=== PATIENT | female | born 2000 | race Caucasian/White ===

== ENCOUNTER → 2025-02-27 09:15 | Outpatient (BNV) | payer OTHER, SELFPAY | PROVIDERS: Visit Provider Psychiatry & Neurology Psychiatry | DX: F33.1 Major depressive disorder, recurrent, moderate (principal); F41.1 Generalized anxiety disorder | CPT/HCPCS: 90792; 99213 ==

== ENCOUNTER 2025-03-12 08:04 | Outpatient (REF) | payer OTHER, SELFPAY ==
--- NOTE | 2025-03-12 08:11 | ECG_ITS ---
Test Reason : F39 F41.1 Blood Pressure : */* mmHG Vent. Rate : 65 BPM Atrial Rate : 65 BPM P-R Int : 164 ms QRS Dur : 82 ms QT Int : 386 ms P-R-T Axes : 53 51 53 degrees QTcB Int : 401 ms Normal sinus rhythm Normal ECG No previous ECGs available Referred By: Taty Dove Electronically Signed By: HERBERT HOANG
--- OUTSIDE RECORDS SUMMARY | 2025-03-12 08:17 | XMS_ITS | Encounter Summary ---
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 Never 04/09/2023 Q2: How many drinks containi ng alcohol do you have on a typical day when you are drinking? Patient does not drink Q3: How often do you have si x or more drinks on one occasion? Never 04/09/2023 Comments No Sex and Gender Information Value Date Recorded Sex Assigned at Female 04/06/2023 3:37 PM EDT Legal Sex Female 4:01 PM EDT Gender Identity Female 01/04/2021 11:19 AM EST Sexual Orientation Heterosexual (straight) 01/04 11:19 AM EST COVID-19 Exposure Response Date Recorded In the last 10 days, have yo u been in contact with someone who was confirmed or suspected to have Coronavirus/COVID-19? No / Unsure 05/02/2023 3:26 PM EDT documented as of this encounter Plan of Treatment Upcoming Encounters Date Type Department Care Team (Late st Contact Info) Description 04/06/2025 10:30 AM EDT Appointment [facility] [address] [place] [address] 04/14/2025 10:30 AM EDT Office Visit [facility] [place] [address] [place] [address] Mady Anand MD [address] [place] [address] [address] [place] [phone] documented as of this encounter Procedures Procedure Name Priority Date/Time Associated Diagnosis Comments PATHOLOGY REPORT 05/21/2023 11:1 4 AM EDT documented in this encounter Results * PATHOLOGY REPORT (05/21/2023 11:14 AM EDT) Jake Diop DO PATHOLOGY/CYTOLOGY ORDERABLES Fi nal Result documented in this encounter Visit Diagnoses Not on filedocumented in this encounter Care Teams Mellowing Machine Operator Relationship Specialty Start Date End Date Zack Wetzel MD PCP - General Pediatric, General 12/09/20 documented as of this encounter
--- OUTSIDE RECORDS SUMMARY | 2025-03-12 08:17 | XMS_ITS ---
Author Organization [facility] Address [address] [place] [id number] Care Team Providers Care Rn Radiation Oncology Name Role Phone DEBBIEALEXISSANTA AYAN Primary Care Provider Ricky Naylor APRN Unavailable [phone] Allergies Allergen (clinical drug ingredient) Drug/Non Drug Allergy documented on EMR Reaction Allergy Type Onset Date Status Adhesive Unknown Allergy Active REASON FOR VISIT pt is here for sharp stomach pains since sunday Medications Medication SIG (Take, Route, Fr equency, Duration) Notes Start Date End Date Status Omeprazole 40 MG 1 capsule 30 minutes before morning meal Orally Once a day for 30 days 01/29/2024 Active CONTROL Not-Ta josue Omeprazole 40 MG 1 capsule Orally Onc e a day for 30 day(s) 12/25/2023 Not-Taking Social History Tobacco Use: Social History Observation Description Date Details (start date - stop date) Unknown Tobacco Use/Smoking Question Answer Notes Are you a Uses tobacco in other forms Tobacco use other than smoking: Question Answer Notes Are you an other tobacco user? Yes Section Notes: Pt vapes Vital Signs Temperature 98 degrees Fahrenheit 01/29/2024 Heart Rate 86 /min 01/29/2024 Blood pressure systolic 114 mm Hg 01/29/20 Blood pressure diastolic 76 mm Hg 024 Weight 115.2 lbs 01/29/2024 BMI 18.04 kg/m2 01/29/2024 Height 67 in 01/29/2024 Oximetry 98 % 01/29/2024 Encounters Encounter Location Date Provider Diagnosis [facility] [address] [place], [place] [id number] 01/29/2024 Ricky Riveraz Acute gastritis without bleeding K29.00 Assessments Encounter Date Diagnosis (ICD Code) Assessment Notes Treatment Notes Treatment Clinical Notes Section Notes 01/29/2024 Acute gastritis without bleeding (ICD-10 - K29.00) Plan Of Treatment Medication Medication Name Sig Start Date Stop Date Notes Omeprazole 40 MG 1 capsule 30 minutes before morning meal Orally Once a day for 30 days 01/29/2024 Progress Notes * Jo LARADOB: 1 (23 yo F)Acc No.[id number]:01/29/2024 Progress Notes Patient:?Jo LARA Appointment Provider:?Ricky Naylor :2000???Age:23 Y???Sex:Female D ate:01/29/2024 Address:[address] [place], [place] [id number] Pcp:AYAN DAMON Subjective: * Chief Complaints: * ???1. Pt is here for sharp s tomach pains since sunday. * HPI: ???Constitutional:? Patient reports abdominal pain since Sunday. Describes pain as being around center of stomach. Has been having daily bowel movements and feels emptied out each time. Denies heartburn symptoms but does get bloated. * ROS:?General/Constitutional:?Denies?Change in appetite.?Denies?Chills.?Denies?Fatigue.?Denies?Fever.?Denies?Headache.?Denies?L ightheadedness.?Denies?Sleep disturbance.?Denies?Weight gain.?Denies?Weight loss.?Respiratory:?Denies?Asthma,?denies.?Denies?Breathing pattern.?Denies?Breathing problems,?denies.?Denies?Chest pain.?Denies?Cough.?Denies?Hemoptysis.?Denies?Pain with inspiration.?Denies?Pneumonia,?denies.?Denies?Shortness of breath,?denies.?Denies?Shortness of breath at rest.?Denies?Shortness of breath with exertion.?Denies?Sputum production.?Denies?Tuberculosis,?denies.?Denies?Wheezing.?Cardiovascular:?Denies?Chest pain.?Denies?Chest pain at rest.?Denies?Chest pain with exertion.?Denies?Claudication.?Denies?Cyanosis.?Denies?Difficulty laying flat.?Denies?Dizziness.?Denies?Dyspnea on exertion.?Denies?Fluid accumulation in the legs.?Denies?Heart murmur,?denies.?Denies?Heart problems,?denies.?Denies?High blood pressure,?denies.?Denies?Irregular heartbeat,?denies.?Denies?Orthopnea.?Denies?Palpitations,?denies.?Denies?Rheumat ic fever,?denies.?Denies?Shortness of breath.?Denies?Weakness.?Denies?Weight gain.?Gastrointestinal:?Admits?Abdominal pain.?Denies?Blood in stool.?Denies?Change in bowel habits.?Denies?Colitis,?denies.?Denies?Constipation.?Denies?Decreased appetite.?Denies?Diarrhea.?Denies?Difficulty swallowing.?Denies?Exposure to hepatitis.?Denies?Heartburn.?Denies?Hematemesis.?Denies?Hepatitis,?denies.?Denie s?Nausea.?Denies?Rectal bleeding.?Denies?Stomach problems,?denies.?Denies?Vomiting.?Denies?Weight loss.? * Medical History:?Fibroadenom a breast. * Surgical History:?mass remov ed from left breast 2022. * Family History:?Father: tim luna.?Mother: alive.?Siblings: alive.?2 sister(s) . .? uncle has diabetes mom had cancer sister-celiac disease. * Social History:?Tobacco Use:?Tobacco Use/Smoking?Are you a?Uses tobacco in other forms.?Tobacco use other than smoking?Are you an other tobacco user??Yes.?Pt vapes. * Medications:?Not-Taking KIMBERLY H CONTROL , Not-Taking Omeprazole 40 MG Capsule Delayed Release 1 capsule Orally Once a day , Medication List reviewed and reconciled with the patient * Allergies:?Adhesive. Objective: * Vitals:?Temp:98F, HR:86/min, BP:114/76mm Hg, Wt:115.2lbs, BMI:18.04Index, Ht: 67 in, Oxygen sat %:98%, Ht-cm: 170.18 cm, Wt-k.25 kg. * Examination: ???General Examination: ?GENERAL APPEARANCE:?alert, pleasant, well nourished, well developed, in no acute distress.?HEART:?no jugular venous distention, no murmurs, rubs, gallops, no S3, S4, regular rate and rhythm, S1, S2 normal.?LUNGS:?clear to auscultation bilaterally, good air movement, no wheezes, rales, rhonchi.?ABDOMEN:?bowel sounds present, no masses palpable, no rebound tenderness, generalized discomfort with palpation.? Assessment: * Assessment: 1.?Acute gastritis without b leeding - K29.00 (Primary)? Plan: * Treatment: * Images: Billing Information: * Visit Code:? 43139 Office Visit, Est Pt., Level 3. * Procedure Codes:? * Sign off status: Completed true * Appointment Provider:?Ricky Wan ate:?01/29/2024 Generated for Martinez kang/Rebecca/eTransmitting on:?03/12/2025 08:17 AM EDT History and Physical Notes * HPI (History of Present Illness) Category Sub-Category Detail Notes Category Not es Constitutional Patient repor ts abdominal pain since Sunday. Describes pain as being around center of stomach. Has been having daily bowel movements and feels emptied out each time. Denies heartburn symptoms but does get bloated Examination Category Sub-Category Detail Notes Category Not es General Examination GENERAL APPEARANCE: alert, p leasant, well nourished, well developed, in no acute distress HEART: no jugular venous di stention, no murmurs, rubs, gallops, no S3, S4, regular rate and rhythm, S1, S2 normal LUNGS: clear to auscultatio n bilaterally, good air movement, no wheezes, rales, rhonchi ABDOMEN: bowel sounds present , no masses palpable, no rebound tenderness, generalized discomfort with palpation
--- OUTSIDE RECORDS SUMMARY | 2025-03-12 08:17 | XMS_ITS | Clinical Summary ---
Author Organization [facility] Address [address] [place] [address] Care Team Providers Care Director Of Diagnostic Imaging Name Role Phone Unavailable Primary Care Provider Unavailabl e Source Comments Please note that some or all of the patient's information could have additional privacy protections. State laws allow health care providers to render certain types of treatment to minors without parental consent. Please do not assume that this information can be shared solely by obtaining just the consent of the patient's parent/guardian. Please determine if all or part of the patient's care was rendered without parent/guardian involvement. And, if so, obtain the minor's consent prior to disclosure.[facility] Allergies No known active allergies Medications No known medications Active Problems Problem Noted Date Diagnosed Date Simple ovarian cyst 11/01/2016 Immunizations Immunization Administration Dates Next Due Pfizer Sars-cov-2 (Purple Cap) Vaccination 03/12,02/18/2021 Family History Medical History Relation Name Comments Anesthesia problems Neg Hx Bleeding disorder Neg Hx Social History Tobacco Use Types Packs/Day Years Used Date Smoking Tobacco: Never Smokeless Tobacco: Never Tobacco Cessation:Counseling Given: Not Answered Alcohol Use Standard Drinks/Week Comments Not Asked 0 (1 standard drink = 0.6 oz pur e alcohol) Comments Unknown Sex and Gender Information Value Date Recorded Sex Assigned at Not on file Legal Sex Female 7:51 PM EDT Gender Identity Not on file Sexual Orientation Not on file Last Filed Vital Signs Vital Sign Reading Time Taken Comments Blood Pressure 130/94 11/28/2023 2:57 PM EST anx ious. Pulse 90 11/28/2023 2:57 PM EST Temperature 36.8 ??C (98.2 ??F) 11/28/2023 2:57 PM ES T Respiratory Rate 18 11/28/2023 2:57 PM EST Oxygen Saturation 100% 11/28/2023 2:57 PM EST Inhaled Oxygen Concentration - - Weight 53 kg (116 lb 13.5 oz) 11/28/2023 2:57 PM EST Height 167.6 cm (5' 6 ) 11/28/2023 2:57 PM EST Body Mass Index 18.86 11/28/2023 2:57 PM EST Plan of Treatment Health Maintenance Due Date Last Done Comments DTaP/TDAP/TD VACCINES (1 - Tdap) 2008 ADOLESCENT HIV SCREENING 2014 COVID-19 Vaccine (3 - season) 2024 03/12/2021, 02/18/2021 INFLUENZA (#1) 2024 NIRSEVIMAB VACCINES UNDER 8 MONTHS Aged Out No longer eligible b ased on patient's age to complete this topic Insurance [facility]
--- OUTSIDE RECORDS SUMMARY | 2025-03-12 08:17 | XMS_ITS | Clinical Summary ---
Author Organization [facility] Address [address] [place] [address] Care Team Providers Care National Stormwater Leader Name Role Phone Zack Wetzel MD Primary Care Provider [phone] Allergies Active Allergy Reactions Criticality Noted Date Comments Adhesives/Tape Rash/Dermatitis Low 03/21/2023 Medications norethindrone-ethi nyl estradiol (11/24) 1-20 MG-MCG per tablet every 24 hours. Acti ve spironolactone (ALDACTONE) 50 MG tablet spironolactone 50 mg tablet TAKE 1 TAB EACH MORNING FOR 2 WEEKS, THEN 2 TABLETS DAILY IN THE MORNING 10/20/20 22 Active tretinoin (RETIN-A) 0.025 % cream tretinoin 0.025 % topical cream APPLY EVERY OTHER NIGHT X 2-3 WEEKS, THEN NIGHTLY IF TOLERATED Active acetaminophen (TYLENOL) 325 MG tabletIndications: Mass of upper outer quadrant of left breast Take 2 tablets (650 mg total) by mouth 4 times daily (every 6 hours) as needed for mild pain. 80 tablet 04/16/20 23 Active ibuprofen (MOTRIN) 600 MG tabletIndications: Mass of upper outer quadrant of left breast Take 1 tablet (600 mg total) by mouth 4 times daily (every 6 hours) as needed for mild pain. 40 tablet 04/16/20 23 Active traMADol (ULTRAM) 50 MG tabletIndications: Mass of upper outer quadrant of left breast Take 1 tablet (50 mg total) by mouth 3 times daily (every 8 hours) as needed for severe pain. 7 tablet 04/16/20 23 Active ondansetron (ZOFRAN-ODT) 4 MG disintegrating tabletIndications: Nausea in adult Take 1 tablet (4 mg total) by mouth 3 times daily (every 8 hours) as needed for nausea or vomiting. Place tablet on tongue to dissolve. 20 tablet 08/14/20 24 Active levonorgestrel (Mirena, 52 MG,) 20 mcg/24hr IUD 1 Intra Uterine Device by Intrauterine route. 09/19/20 24 Active Active Problems Problem Noted Date Diagnosed Date Mass of upper outer quadrant of left breast 03/05 Abnormal finding on breast imaging 03/21/2023 Family History Medical History Relation Name Comments Diabetes Maternal Uncle Hernandez Brasher i? m not sure when Ovarian cancer Mother Steffi Reyna Celiac disease Sister 1 haritha gonzalez a little o alvarado a year ago Relation Name Status Comments Father Alive Maternal Grandmother Yakelin Corona Maternal Uncle Hernandez Brasher Mother Steffi Reyna Alive Sister 1 haritha gonzalez Alive Sister 2 Alive Social History Tobacco Use Types Packs/Day Years Used Date Smoking Tobacco: Never Smokeless Tobacco: Current Tobacco Cessation:Ready to Q uit: Not Asked; Counseling Given: Not Answered Comments:i vape Alcohol Use Standard Drinks/Week Comments [...] Orientation Heterosexual (straight) 01/04 11:19 AM EST Last Filed Vital Signs Vital Sign Reading Time Taken Comments Blood Pressure 100/62 10/14/2024 10:09 AM EST Pulse 89 08/14/2024 4:07 PM EDT Temperature 36.6 ??C (97.9 ??F) 08/14/2024 4:07 PM ED T Respiratory Rate 18 04/16/2023 3:15 PM EDT Oxygen Saturation 99% 08/14/2024 4:07 PM EDT Inhaled Oxygen Concentration - - Weight 52.6 kg (116 lb) 10/14/2024 10:09 AM EST Height 167.6 cm (5' 6 ) 10/14/2024 10:09 AM EST Body Mass Index 18.72 10/14/2024 10:09 AM EST Plan of Treatment Upcoming Encounters Date Type Department Care Team (Late st Contact Info) Description 04/06/2025 10:30 AM EDT Appointment [facility] [address] [place] [phone] 04/14/2025 10:30 AM EDT Office Visit [facility] [address] [place] [address] Mady Anand MD [address] [facility] [address] [place] [address] Health Maintenance Due Date Last Done Comments HPV Vaccines (1 - 3-dose series) 2016 DTaP/Tdap/Td Vaccines (1 - Tdap) 2020 Hepatitis B Vaccines (1 of 3 - 19+ 3-dose series) 2020 COVID-19 Vaccine ( - season) 2024 11/03/2021, 03/16/2021, 03/12/2021, Additional history exists Influenza Vaccine 06/05/2025 11/03/2021, , 10/16/2018, Additional history exists Pap Smear (Ages 21-65) 07/28/2025 07/28/2022 HIV Screening Completed 05/04/2023 Hepatitis C Virus Screening Completed 05/04/2023 Pneumococcal Vaccine: Pediatric (0-5 Years) and At-Risk Patients (6 to 49 Years) Aged Out No longer eligible based on patient's age to complete this topic Procedures Procedure Name Priority Date/Time Associated Diagnosis Comments HIV 1/2 AG/AB CMIA REFLEX TO CONFIRMATION Routine 05/04/2023 9:24 AM EDT HEPATITIS C VIRUS (HCV) ANTIBODY Routine 05/04/2023 9:24 AM EDT THINPREP PAP TEST (MEDIA CLERK) WITH HPV REFLEX, GC/CT Routine 07/28/2022 9:24 PM EDT from Last 3 Months or Most Recently Relevant to Health Maintenance Results * HIV 1/2 Ag/Ab CMIA Reflex to Confirmation (05/04/2023 9:24 AM EDT) HIV Ag/Ab, 4th Gen NON-REACT CASSIDY NON-REACT CASSIDY [facility] Comment: HIV-1 antigen and HIV-1/HIV-2 antibodies were not detected. There is no laboratory evidence of HIV infection. PLEASE NOTE: This information has been disclosed to you from records whose confidentiality may be protected by state law. ??If your state requires such protection, then the state law prohibits you from making any further disclosure of the information without the specific written consent of the person to whom it pertains, or as otherwise permitted by law. A general authorization for the release of medical or other information is NOT sufficient for this purpose. ?? For additional information please refer to http://education.[employer].PlaySight/faq/EWL502 (This link is being provided for informational/ educational purposes only.) The performance of this assay has not been clinically validated in patients less than 2 years old. 05/04/2023 9:24 AM EDT 05/04/2023 9:25 AM EDT Narrative [facility] - 05/11/2023 2:45 PM EDT FASTING:YES FASTING: YES us Hugo Kingsley PA-C LAB BLOOD ORDERABLES Final Result [facility] [address] [facility] [address], [place] [address] * HEPATITIS C VIRUS (HCV) ANTIBODY (05/04/2023 9:24 AM EDT) Hepatitis C Antibody NON-REACT CASSIDY NON-REACT CASSIDY [facility] Comment: HCV antibody was non-reactive. There is no laboratory evidence of HCV infection. In most cases, no further action is required. However, if recent HCV exposure is suspected, a test for HCV RNA (test code 74295) is suggested. For additional information please refer to http://education.[employer]/faq/AOL03x2 (This link is being provided for informational/ educational purposes only.) 05/04/2023 9:24 AM EDT 05/04/2023 9:25 AM EDT Narrative [facility] - 05/11/2023 2:45 PM EDT FASTING:YES FASTING: YES Hugo Kingsley PA-C LAB BLOOD ORDERABLES Final Result [facility] [address], [place] [address] * ThinPrep Pap Test (Brick Wheeler) with HPV Reflex, GC/CT (07/28/2022 9:24 PM EDT) Report Report [facility] Comment: Final Gynecological Cytology Report ThinPrep Pap Test with HPV Reflex, GC/Chlamydia SPECIMEN ADEQUACY: SATISFACTORY FOR EVALUATION; ENDOCERVICAL/TRANSFORMATION ZONE COMPONENT PRESENT. INTERPRETATION: NEGATIVE FOR INTRAEPITHELIAL LESION OR MALIGNANCY. Electronically Signed: ??Mary Suarez CT (ASCP) CLINICAL INFORMATION: LMP: NG Clinical History: ??NG Biopsy Date: ??NG Specimen Source: ??Cervix, Endocervix Previous Pap Date: ??NG CPT Codes: 73210 ICD Codes: Z01.419 Other 07/28/2022 9:24 PM EDT 07/28/2022 10:30 PM EDT Narrative [facility] - 08/03/2022 10:02 AM EDT CC: ZACK WETZEL MD, FAX us Noemy Longoria MD LAB AMB PATH/CYTO ORDERABLES F inal Result Performing Organization Address City/State/[facility] Co de Phone Number [facility] [address] [place], [place] from Last 3 Months or Most Recently Relevant to Health Maintenance [facility] H[facility] Advance Directives * Full Code (Latest Code Status on File) Date Activated Date Inactivated Comments 04/16/2023 12:16 PM Care Teams National Stormwater Leader Relationship Specialty Start Date End Date Zack Wetzel MD PCP - General Pediatric, General 12/09/20
--- OUTSIDE RECORDS SUMMARY | 2025-03-12 08:17 | XMS_ITS ---
Author Organization [facility] Address [address], [place] [id number] Care Team Providers Care Cell Lead Name Role Phone TUCKER LINFAREEDBRANDON Primary Care Provider [phone] Allergies Allergen (clinical drug ingredient) Drug/Non Drug Allergy documented on EMR Reaction Allergy Type Onset Date Status Adhesive Unknown Allergy Active Results Component Value Reference Range Notes LIPID PANEL WITH REFLEX TO D IRECT LDL Reviewed date:04/09/2024 10:50:26 AM Interpretation: Performing Lab:[facility], [facility] [id number] Ronald Hammond M.D. Notes/Report: FASTING: YES FASTING:YES 0; FASTING; 0; 0; 0; 0 CHOLESTEROL, TOTAL 147 <200 mg/dL HDL CHOLESTEROL 60 > OR = 50 mg/dL TRIGLYCERIDES 43 <150 mg/dL LDL-CHOLESTEROL 75 Desirable range <100 mg/dL for primary prevention; <70 mg/dL for patients with CHD or diabetic patients with > or = 2 CHD risk factors. LDL-C is now calculated using the Armen-Kel calculation, which is a validated novel method providing better accuracy than the Friedewald equation in the estimation of LDL-C. Armen WHITFIELD et al. MINI. 2013;310(19): 7833-7402 (http://education.Testin.CAILabs/faq/JEC871) Reference range: <100 CHOL/HDLC RATIO 2.5 <5.0 (calc) NON HDL CHOLESTEROL 87 <130 mg/dL (calc) For patients with diabetes plus 1 major ASCVD risk factor, treating to a non-HDL-C goal of <100 mg/dL (LDL-C of <70 mg/dL) is considered a therapeutic option. COMPREHENSIVE METABOLIC PANE L Reviewed date:04/09/2024 10:50:26 AM Interpretation: Performing Lab:[employer] [address] Ronald Hammond M.D. Notes/Report: 0; FASTING; 0; 0; 0; 0 FASTING:YES FASTING: YES GLUCOSE 70 65-99 mg/dL Fasting reference interval UREA NITROGEN (BUN) 12 7-25 mg/dL CREATININE 0.57 0.50-0.96 mg/dL EGFR 132 > OR = 60 mL/min/1.73m2 BUN/CREATININE RATIO SEE NOTE: 6-22 (calc) Not Reported: BUN and Creatinine are within reference range. SODIUM 136 135-146 mmol/L POTASSIUM 5.2 3.5-5.3 mmol/L CHLORIDE 101 98-110 mmol/L CARBON DIOXIDE 30 20-32 mmol/L CALCIUM 9.7 8.6-10.2 mg/dL PROTEIN, TOTAL 7.3 6.1-8.1 g/dL ALBUMIN 4.5 3.6-5.1 g/dL GLOBULIN 2.8 1.9-3.7 g/dL (calc) ALBUMIN/GLOBULIN RATIO 1.6 1.0-2.5 (calc) BILIRUBIN, TOTAL 0.4 0.2-1.2 mg/dL ALKALINE PHOSPHATASE 47 31-125 U/L AST 12 10-30 U/L ALT 5 6-29 U/L CBC (INCLUDES DIFF/PLT) Reviewed date:04/09/2024 10:50:26 AM Interpretation: Performing Lab:[employer] [address] Ronald Hammond M.D. Notes/Report: 0; FASTING; 0; 0; 0; 0 FASTING:YES FASTING: YES WHITE BLOOD CELL COUNT 4.7 3.8-10.8 Thousand/ uL RED BLOOD CELL COUNT 5.04 3.80-5.10 Million/uL HEMOGLOBIN 14.7 11.7-15.5 g/dL HEMATOCRIT 45.7 35.0-45.0 % MCV 90.7 80.0-100.0 fL MCH 29.2 27.0-33.0 pg MCHC 32.2 32.0-36.0 g/dL RDW 12.2 11.0-15.0 % PLATELET COUNT 257 140-400 Thousand/uL MPV 12.1 7.5-12.5 fL ABSOLUTE NEUTROPHILS 2745 [id number] cells/uL ABSOLUTE LYMPHOCYTES 1506 366-3974 cells/uL ABSOLUTE MONOCYTES 324 200-950 cells/uL ABSOLUTE EOSINOPHILS 52 15-500 cells/uL ABSOLUTE BASOPHILS 61 0-200 cells/uL NEUTROPHILS 58.4 LYMPHOCYTES 32.3 MONOCYTES 6.9 EOSINOPHILS 1.1 BASOPHILS 1.3 URINALYSIS, COMPLETE W/REFLE X TO CULTURE Reviewed date:03/24/2024 08:03:07 AM Interpretation: Performing Lab:[facility] [address] Ronald Hammond M.D. Notes/Report: 0; FASTING; 0; 0; 0; 0 FASTING:YES FASTING: YES COLOR YELLOW YELLOW APPEARANCE CLOUDY CLEAR SPECIFIC GRAVITY 1.016 1.001-1.035 PH 8.5 5.0-8.0 GLUCOSE NEGATIVE NEGATIVE BILIRUBIN NEGATIVE NEGATIVE KETONES NEGATIVE NEGATIVE OCCULT BLOOD NEGATIVE NEGATIVE PROTEIN NEGATIVE NEGATIVE NITRITE NEGATIVE NEGATIVE LEUKOCYTE ESTERASE NEGATIVE NEGATIVE WBC NONE SEEN < OR = 5 /HPF RBC NONE SEEN < OR = 2 /HPF SQUAMOUS EPITHELIAL CELLS 0-5 < OR = 5 /HPF BACTERIA NONE SEEN NONE SEEN /HPF HYALINE CAST NONE SEEN NONE SEEN /LPF NOTE This urine was analyzed for the presence of WBC, RBC, bacteria, casts, and other formed elements. Only those elements seen were reported. HEMOGLOBIN A1c Reviewed date:04/09/2024 10:50:26 AM Interpretation: Performing Lab:[facility] [address] Ronald Hammond M.D. Notes/Report: 0; FASTING; 0; 0; 0; 0 FASTING:YES FASTING: YES HEMOGLOBIN A1c 4.8 <5.7 % of total Hgb For the purpose of screening for the presence of diabetes: <5.7% Consistent with the absence of diabetes 5.7-6.4% Consistent with increased risk for diabetes (prediabetes) > or =6.5% Consistent with diabetes This assay result is consistent with a decreased risk of diabetes. Currently, no consensus exists regarding use of hemoglobin A1c for diagnosis of diabetes in children. According to [place] Diabetes Association (ADA) guidelines, hemoglobin A1c <7.0% represents optimal control in non- diabetic patients. Different metrics may apply to specific patient populations. Standards of Medical Care in Diabetes(ADA). This test was performed on the Pino keily c503 platform. Effective 01/07/24, a change in test platforms from the Meza Inspector Precision to the Pino keily c503 may have shifted HbA1c results compared to historical results. Based on laboratory validation testing conducted at [facility], the Pino platform relative to the Meza platform had an average increase in HbA1c value of < or = 0.3%. This difference is within accepted variability established by the National Glycohemoglobin Standardization Program. Note that not all individuals will have had a shift in their results and direct comparisons between historical and current results for testing conducted on different platforms is not recommended. TSH Reviewed date:04/09/2024 10:50:26 AM Interpretation: Performing Lab:[facility], [facility] [address] Ronald Hammond M.D. Notes/Report: 0; FASTING; 0; 0; 0; 0 FASTING:YES FASTING: YES TSH 0.36 Reference Range > or = 20 Years 0.40-4.50 Ranges First trimester 0.26-2.66 Second trimester 0.55-2.73 Third trimester 0.43-2.91 COPY(IES) SENT TO: Reviewed date:02/25/2024 10:41:58 AM Interpretation: Performing Lab: Notes/Report: 0; FASTING; 0; 0; 0; 0 FASTING:YES FASTING: YES COPY(IES) SENT TO: [facility] COPY TO [address] [id number] REFLEXIVE URINE CULTURE Reviewed date:03/24/2024 08:00:29 AM Interpretation: Performing Lab:[facility], [facility] [address] Ronald Hammond M.D. 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 Yes How often did you have a dri nk containing alcohol in the past year? Monthly or less (1 point) How many drinks did you have on a typical day when you were drinking in the past year? 1 or 2 drinks (0 point) How often did you have 6 or more drinks on one occasion in the past year? Never (0 point) Points 1 Interpretation Negative Sexual History Question Answer Notes Had sex in the past 12 months (vaginal, oral, or anal)? Yes with Men only Use protection? Yes How often? All of the time Prevention strategies discussed: Condoms Have you ever had a Sexually transmitted disease ? No Tobacco use other than smoking: Question Answer Notes Are you an other tobacco user? Yes Section Notes: Pt vapes Vital Signs Temperature 97.8 degrees Fahrenheit 12/25/19 24 Heart Rate 76 /min 12/25/2023 Blood pressure systolic 101 mm Hg 12/25/19 24 Blood pressure diastolic 65 mm Hg 024 Weight 117.2 lbs 12/25/2023 BMI 18.35 kg/m2 12/25/2023 Height 67 in 12/25/2023 Oximetry 98 % 12/25/2023 Encounters Encounter Location Date Provider Diagnosis [facility] [address] [place], [place] [id number] 12/25/2023 THOMAS LIN Encounter for general adult medical examination without abnormal findings Z00.00 ; Encounter for screening for depression Z13.31 and Acute gastritis without bleeding K29.00 Assessments Encounter Date Diagnosis (ICD Code) Assessment Notes Treatment Notes Treatment Clinical Notes Section Notes 12/25/2023 Encounter for general adult medical examination without abnormal findings (ICD-10 - Z00.00) Advised pt to exercise daily and eat a healthy diet. Advised pt to self exam breast once a month after MC. 12/25/2023 Encounter for screening for depression (ICD-10 - Z13.31) Advised pt to exercise daily and eat a healthy diet. Advised pt to self exam breast once a month after MC. 12/25/2023 Acute gastritis without bleeding (ICD-10 - K29.00) Advised pt to exercise daily and eat a healthy diet. Advised pt to self exam breast once a month after MC. 12/25/2023 Other Marijuana Use: Care Instructions material was published, Learning About Cannabis Use Disorder material was published, Learning About Substance Use Disorder material was published, Substance Use Disorder: Care Instructions material was published, Learning About Vaping material was published Pt is discussed regarding the ill effects on health in using Marijuana and Vaping and is counselled on stopping the usage. Advised pt to exercise daily and eat a healthy diet. Advised pt to self exam breast once a month after MC. Plan Of Treatment Medication Medication Name Sig Start Date Stop Date Notes Omeprazole 40 MG 1 capsule Orally Once a day for 30 day(s) 12/25/2023 Treatment Notes Assessment Notes Other Marijuana Use: Care Instructions material was published, Learning About Cannabis Use Disorder material was published, Learning About Substance Use Disorder material was published, Substance Use Disorder: Care Instructions material was published, Learning About Vaping material was published Progress Notes * Jo GRIERDOB: 1 (23 yo F)Acc No.[id number]:12/25/2023 Progress Notes Patient:?Jo GRIER Provider:Leydi Lin :2000???Age:23 Y???Sex:Female D ate:12/25/2023 Address:[address] [place], [place] [id number] Subjective: * Chief Complaints: * ???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 2. Lmp current ly on period. 3. Pap 2022. 4. [id number]. * HPI: ???Depression Screening:?PHQ-2 (2015 Edition)?Little interest or pleasure in doing things??Not at all ?Feeling down, depressed, or hopeless??Not at all ?Total Score?0 ???Constitutional:?Denies : Anorexia.?Denies : Fatigue.?Denies : Fever.?Denies : Joint pains.?Denies : Myalgia.?Denies : Neck pain.?Denies : Night sweats.?Denies : Weight gain.?Denies : Weight loss.?Denies : edema.?Denies : Swollen legs.?Denies : sleep disturbances.?Denies : headache.?Denies : chills.? New Pt.Pt is here for physical without pap. ?Last pap:2022,has OBGYN. ?LMP:currently on periods. ?MC:regular,on control. ?Diet & Exercise:good and not regular ?Eye exam:long time ago.on glasses. ?Complaints:labs ordered. ?c/o nausea and heartburn in recent times and back muscle spasm. ?she went to hospital for the same and was diagnosed as costochondritis. * ROS:?General/Constitutional:?Denies?Change in appetite.?Denies?Chills.?Denies?Fatigue.?Denies?Fever.?Denies?Headache.?Denies?L ightheadedness.?Denies?Sleep disturbance.?Denies?Weight gain.?Denies?Weight loss.?Allergy/Immunology:?AIDS?denies.?Denies?Blistering of skin.?Denies?Congestion.?Denies?Cough.?Denies?HIV Positive,?denies.?Denies?Hives.?Denies?Itching.?Denies?Rash.?Denies?Seasonal allergies,?denies.?Denies?Sneezing.?Denies?Unusual reaction to medication(s), food, animals or insects.?Denies?Watery eyes.?Denies?Wheezing.?You or family member have problems with anesthesia?denies.?Ophthalmologic:?Denies?Blurred vision,?denies.?Denies?Contact lens,?denies.?Denies?Corrective lens,?denies.?Denies?Diminished visual acuity.?Denies?Discharge.?Denies?Dry eye,?denies.?Denies?Eye Pain.?Denies?Eye problems,?denies.?Denies?Flashes of light in the visual field.?Denies?Floaters in the visual field.?Denies?Itching and redness.?Denies?Red eye.?Denies?Vision screen.?ENT:?Denies?Blocked ear.?Denies?Capped teeth, veneers or dentures.?Denies?Decreased hearing.?Denies?Decreased sense of smell.?Denies?Deviated septum,?denies.?Denies?Difficulty swallowing.?Denies?Dry mouth.?Denies?Ear pain.?Denies?Ear problems,?denies.?Denies?Hearing screen.?Denies?History of broken nose,?denies.?Denies?Masses.?Denies?Mouth breathing at night.?Denies?Nose/Throat problems,?denies.?Denies Nosebleed.?Denies?Oral or facial skeletal surgery.?Denies?Pain.?Denies?Ringing in the ears.?Denies?Sinus pain.?Denies?Snoring,?denies.?Denies?Sore throat.?Denies?Swollen glands.?Endocrine:?Denies?Acne.?Denies?Cold intolerance.?Denies?Diabetes.?Denies?Difficulty sleeping.?Denies?Dizziness.?Denies?Excessive sweating.?Denies?Excessive thirst.?Denies?Frequent urination.?Denies?Hair loss.?Denies?Heat intolerance.?Denies?Hot flashes.?Denies?Irregular menses.?Denies?Thyroid problems.?Denies?Weakness.?Denies?Weight loss.?Respiratory:?Denies?Asthma,?denies.?Denies?Breathing pattern.?Denies?Breathing problems,?denies.?Denies?Chest pain.?Denies?Cough.?Denies?Hemoptysis.?Denies?Pain with inspiration.?Denies?Pneumonia,?denies.?Denies?Shortness of breath,?denies.?Denies?Shortness of breath at rest.?Denies?Shortness of breath with exertion.?Denies?Sputum production.?Denies?Tuberculosis,?denies.?Denies?Wheezing.?Breast:?Denies?Bloody nipple discharge.?Denies?Bra strap grooving,?admits.?Denies?Breast biopsies,?denies.?Denies?Breast lump.?Denies?Breast pain.?Denies?Breast swelling.?Denies?Burning nerve pain.?Denies?Chest muscle pain.?Denies?Fever.?Denies?Gland swelling.?Denies?Nipple discharge.?Denies?Rashes.?Denies?Red skin.?Denies?Weight loss.?Have you had a mammogram??No.?Denies?History of breast cancer,?denies.?Denies?Known breast asymmetry,?admits.?Cardiovascular:?Denies?Chest pain.?Denies?Difficulty laying flat.?Denies?Dizziness.?Denies?Dyspnea on exertion.?Denies?Heart problems.?Denies?Palpitations.?Denies?Shortness of breath.?Gastrointestinal:?Denies?Abdominal pain.?Denies?Blood in stool.?Denies?Change in bowel habits.?Denies?Colitis,?denies.?Denies?Constipation.?Denies?Decreased appetite.?Denies?Diarrhea.?Denies?Difficulty swallowing.?Denies?Exposure to hepatitis.?Denies?Heartburn.?Denies?Hematemesis.?Denies?Hepatitis,?denies.?Denie s?Nausea.?Denies?Rectal bleeding.?Denies?Stomach problems,?denies.?Denies?Vomiting.?Denies?Weight loss.?Hematology:?Denies?Anemia,?denies.?Denies?Bleeding problems,?denies.?Denies?Breast lump.?Denies?Dizziness.?Denies?Easy bruising,?denies.?Denies?Fever.?Denies?Groin mass.?Denies?Prolonged bleeding.?Denies?Recent transfusion,?denies.?Denies?Swollen glands.?Denies?Weakness.?Denies?Weight loss.?Denies?Family member with bleeding problems,?denies.?Women Only:?Denies?Breast lump.?Denies?Breast pain.?Denies?Discharge from the breast.?Denies?Heavy bleeding during menses.?Denies?Hot flashes.?Denies?Irregular menses.?Denies?Missed period(s).?Denies?Painful intercourse.?Denies?Painful menses.?Denies?Vaginal bleeding between periods.?Denies?Vaginal discharge/itching.?Genitourinary:?Denies?Abdominal pain/swelling.?Denies?Blood in urine.?Denies?Difficulty urinating.?Denies?Frequent urination.?Denies?Heavy uterine bleeding,?denies.?Denies?Kidney problems,?denies.?Denies?Pain in lower back.?Denies?Painful urination.?Musculoskeletal:?Denies?Arthritis,?denies.?Denies?Back problems,?denies.?Denies?Carpal tunnel.?Denies?History of Gout,?denies.?Denies?Joint stiffness.?Denies?Leg cramps.?Denies?Muscle aches.?Denies?Pain in shoulder(s).?Denies?Painful joints.?Denies?Sciatica.?Denies?Swollen joints.?Denies?Trauma to arm(s).?Denies?Trauma to hip(s).?Denies?Trauma to knee(s).?Denies?Trauma to ankle(s).?Denies?Weakness.?Peripheral Vascular:?Denies?Absent pulses in hands.?Denies?Absent pulses in feet.?Denies?Blanching of skin.?Blood clots in legs?Denies.?Denies?Cold extremities.?Denies?Decreased sensation in extremities.?Denies?Pain/cramping in legs after exertion.?Denies?Painful extremities.?Denies?Ulceration of feet.?Podiatric:?Denies?Achilles pain.?Denies?Achilles swelling.?Denies?Ankle pain.?Denies?Ankle swelling.?Denies?Ball of foot pain.?Denies?Big toe pain.?Denies?Big toe swelling.?Denies?Burning.?Denies?Difficulty walking.?Denies?Fever.?Denies?Foot numbness.?Denies?Foot pain.?Denies?Joint dislocation.?Denies?Redness over the achilles.?Denies?Sole pain.?Denies?Wound oozing.?Skin:?Denies?Acne.?Applies sunscreen daily?admits.?Denies?Blistering of skin.?Denies?Discoloration.?Denies?Dry skin.?Denies?Eczema.?Denies?Excessive sun exposure.?Denies?Hair changes.?Denies?Hives.?Denies?Itching.?Denies?Keloid formation.?Denies?Masses.?Denies?Mole(s).?Denies?Nail changes.?Denies?Nodule(s).?Denies?Photosensitivity.?Denies?Rash.?Denies?Rash on feet.?Denies?Scaly lesions of skin/scalp.?Denies?Skin cancer.?Denies?Skin lesion(s).?Denies?Skin oozing.?Denies?Sun sensitivity.?Treated with radiation?denies.?Neurologic:?Denies?Balance difficulty.?Denies?Coordination.?Denies?Difficulty speaking.?Denies?Dizziness.?Denies?Fainting.?Denies?Gait abnormality.?Denies?Headache.?Denies?Irritability.?Denies Loss of strength.?Denies?Loss of use of extremity.?Denies?Low back pain.?Denies?Memory loss.?Denies?Pain.?Denies?Paralysis.?Denies?Seizures.?Stroke?Denies,?denies.?Den ies?Tics.?Denies?Tingling/Numbness.&# 160;Denies?Transient loss of vision.?Denies?Tremor.?Psychiatric:?Denies?Anxiety.?Denies?Auditory/visual hallucinations.?Denies?Delusions.?Denies?Depressed mood.?Denies?Difficulty sleeping.?Denies?Eating disorder.?Denies?Loss of appetite.?Denies?Mental or Physical abuse.?Denies?Nervous breakdown,?denies.?Denies?Psychiatric condition,?denies.?Denies?Stressors.?Denies?Substance abuse.?Denies?Suicidal thoughts.?Health Education:?Admits?Blood pressure screening.?Admits?Diabetes screening.?Admits?Healthy weight education.?Admits?Lipid screening.?Cancer Self-Management:?Admits?Breast self-exam.?Admits?Skin exam.?Admits?Use of sunscreen.? * Medical History:?Fibroadenom a breast. * Surgical History:?mass remov ed from left breast 2022. * Family History:?Father: tim e.?Mother: alive.?Siblings: alive.?2 sister(s) . .? uncle has diabetes mom had cancer sister-celiac disease. * Social History:?Tobacco Use:?Tobacco Use/Smoking?Are you a?Uses tobacco in other forms ?Tobacco use other than smoking?Are you an other tobacco user??Yes ???Sexual History:?Sexual History?Had sex in the past 12 months (vaginal, oral, or anal)??Yes ?with?Men only ?Use protection??Yes ?How often??All of the time ?Prevention strategies discussed:?Condoms ?Have you ever had a Sexually transmitted disease??No ?Details of Sexual History?Are you sexually active??Yes ?Are you having any sexual problems??No ?Have you had any sexually transmitted diseases (STDs)??No ?How many sexual partners have you had??1 ?Sexual Abuse?History:?none ???Drugs/Alcohol:?Drugs?Have you used drugs other than those for medical reasons in the past 12 months??Yes ?Marijuana??Yes everyday ?Alcohol Screen (Audit-C)?Did you have a drink containing alcohol in the past year??Yes ?How often did you have a drink containing alcohol in the past year??Monthly or less (1 point) ?How many drinks did you have on a typical day when you were drinking in the past year??1 or 2 drinks (0 point) ?How often did you have 6 or more drinks on one occasion in the past year??Never (0 point) ?Points?1 ?Interpretation?Negative ?Caffeine?Intake:?1-2 cups per day ?Do you smoke marijuana?: Admits. ?Do you drink alcohol?: Socially. ???Miscellaneous:?Caffeine: yes, frequency:, 1-2 cups per day. ?Children: no. ?Community involvements: no. ?Domestic violence: no. ?Exercise: no. ?Home smoke detector use: yes. ?Legal problems: no. ?Living with: family. ?Marital status: single. ?Natural support system: no. ?Occupation: weeks/months/years. ?Others at home: none. ?Pets: dogs. ?Sexual abuse: no. ?Sexually active: yes. ?Travel outside of the [place]: no. ?Verbal abuse: no. ???Pt vapes. * Medications:?Taking CO NTROL , Medication List reviewed and reconciled with the patient * Allergies:?Adhesive. Objective: * Vitals:?Temp:97.8F, HR:76/mi n, BP:101/65mm Hg, Wt:117.2lbs, BMI:18.35Index, Ht: 67 in, Oxygen sat %:98%, Ht-cm: 170.18 cm, Wt-k.16 kg. * Examination: ???General Examination: ?GENERAL APPEARANCE:?normal, alert, well hydrated, in no distress, in no acute distress, pleasant, in no acute distress, well developed, well nourished.?HEAD:?normocephalic, atraumatic.?EYES:?extraocular movement full and smooth , pupils equal, round, reactive to light and accommodation.?EARS:?auditory canal clear,?tympanic membrane intact, clear.?NOSE:?nares patent.?ORAL CAVITY:?mucosa moist.?THROAT:?clear, no erythema.?NECK/THYROID:?neck supple, full range of motion, no cervical lymphadenopathy.?LYMPH NODES:?no cervical adenopathy.?SKIN:?no suspicious lesions.?HEART:?no murmurs, regular rate and rhythm, S1, S2 normal.?LUNGS:?clear to auscultation bilaterally.?BREASTS:?no masses palpable bilaterally.?ABDOMEN:?normal, bowel sounds present, no hepatosplenomegaly.?RECTAL:?not examined.?BACK:?full range of motion , normal.?FEMALE GENITOURINARY:?not examined.?MUSCULOSKELETAL:?normal , full range of motion.?EXTREMITIES:?no edema , normal.?PERIPHERAL PULSES:?2+ dorsalis pedis.?NEUROLOGIC:?cognitive exam grossly normal, alert and oriented , nonfocal.?PSYCH:?alert, oriented.? Assessment: * Assessment: 1.?Encounter for general marcos lt medical examination without abnormal findings - Z00.00 (Primary)?2.?Encounter for screening for depression - Z13.31?3.?Acute gastritis without bleeding - K29.00? Advised pt to exercise daily and eat a healthy diet. Advised pt to self exam breast once a month after MC. Plan: * Treatment: 2.?Acute gastritis without b leeding? Start Omeprazole Capsule Delayed Release, 40 MG, 1 capsule, Orally, Once a day, 30 day(s), 30, Refills 3.?? 3.?Others? Notes: Marijuana Use: Care Instructions material was published, Learning About Cannabis Use Disorder material was published, Learning About Substance Use Disorder material was published, Substance Use Disorder: Care Instructions material was published, Learning About Vaping material was published?? Clinical Notes: Pt is discussed regarding the ill effects on health in using Marijuana and Vaping and is counselled on stopping the usage.?? * Procedure Codes:?84943 BRIEF EMOTIONAL/BEHAV ASSMT * Preventive Medicine:? ??YOUR PREVENTIVE WELLNESS PLAN:?BMI, Height, and Weight:?My BMI, height, and weight were taken on:?12/25/2023 ?Blood Pressure:?My blood pressure was last taken on:?12/25/2023 ?Cervical Cancer Screening (Pap Smear):?Date of last Pap smear?2022, (NORMAL) ?Cholesterol Testing:?My Cholesterol was last tested on:?12/25/2023 Ordered ?Diabetes Screening:?Screening for diabetes was last done on:?12/25/2023 Ordered ?Depression Screening:?Screening for depression was last done on:?12/25/2023 ?Alcohol Misuse Screening:?Screening for alcohol misuse was last done on:?12/25/2023 ??Preventive Wellness Plan:?Annual Wellness Visit?Current Status of AWV :?Up to date ?Date of last AWV :?12/25/2023 ?Cervical Cancer Screening?Current status of Cervical Cancer Screening :?Up to date 2022 ??Counseling:?ALCOHOL USE/ABUSE SCREENING:?.?Annual pap smear:?.?Bike helmet:?.?Breast awareness?.?Breast self exam after periods:?.?Calcium supplementation:?.?Cancer screen:?.?Diet/Vitamins discussed including high doses of Vitamins A, C, E and Zinc:?.?Domestic violence:?.?Donor card:?.?Drugs?.?Exercise:?.?Guns in home:?.?Hand outs:?.?Hazardous materials exposure:?.?Health:?.?Injury prevention:?.?Living will/Organ donor:?.?Safety:?.?Seatbelts:?.?Sexual practices:?.?SMOKING:?.?Social:?.?Sunscreen:?.? * Images: Billing Information: * Visit Code:? 32478 Preventive Care New Pt. Age 18-39. * Procedure Codes:? 62217 BRIEF EMOTIONAL/BEHAV ASSMT. * Sign off status: Completed true * Provider:?Thomas Lin Date:? Generated for Martinez kang/Rebecca/eTransmitting on:?03/12/2025 08:16 AM EDT History and Physical Notes * HPI (History of Present Illness) Category Sub-Category Detail Notes Category Not es Constitutional Anorexia New Pt.Pt is here for physical without pap. Last pap:2022,has OBGYN. LMP:currently on periods. MC:regular,on control. Diet & Exercise:good and not regular Eye exam:long time ago.on glasses. Complaints:labs ordered. c/o nausea and heartburn in recent times and back muscle spasm. she went to hospital for the same and was diagnosed as costochondritis. Fatigue Fever Joint pains Myalgia Night sweats Weight gain Weight loss Neck pain edema Swollen legs sleep disturbances headache chills Depression Screening PHQ-2 (2015 Edition) Little interest or pleasure in doing things?: Not at all Feeling down, depressed, or hopeless?: N ot at all Total Score: 0 Examination Category Sub-Category Detail Notes Category Not es General Examination GENERAL APPEARANCE: normal, alert, well hydrated, in no distress, in no acute distress, pleasant, in no acute distress, well developed, well nourished HEAD: normocephalic, atrau matic EYES: extraocular movement full and smooth , pupils equal, round, reactive to light and accommodation EARS: auditory canal clear , tympanic membrane intact, clear NOSE: nares patent THROAT: clear, no erythema NECK/THYROID: neck supple, full ra nge of motion, no cervical lymphadenopathy HEART: no murmurs, regular rate and rhythm, S1, S2 normal LUNGS: clear to auscultatio n bilaterally ABDOMEN: normal, bowel sounds present, no hepatosplenomegaly NEUROLOGIC: cognitive exam gross ly normal, alert and oriented , nonfocal SKIN: no suspicious lesion s EXTREMITIES: no edema , normal PERIPHERAL PULSES: 2+ dorsalis pedis BACK: full range of motion , normal BREASTS: no masses palpable b ilaterally MUSCULOSKELETAL: normal , full range of motion LYMPH NODES: no cervical adenopat hy RECTAL: not examined PSYCH: alert, oriented FEMALE GENITOURINARY: not examined ORAL CAVITY: mucosa moist
--- OUTSIDE RECORDS SUMMARY | 2025-03-12 08:17 | XMS_ITS ---
Author Name [facility] Organization Unknown Results Test Name/Text Value Interpretation Date Range Source tTG IgA Ser-aCnc 20.8U/mL Above high normal [id number] [facility] IgA SerPl-mCnc 319mg/dL Above high normal [id number] 47 - 310 [facility] Laboratory comment Report Normal [id number] [facility] RPR Ser Ql NON-REACTIVE Normal [id number] [facility] History of Medication Use Medication Directions Dispensed Refills Start Date End Date Stat levonorgestrel (Mirena, 52 MG,) 20 mcg/24hr IUD 1 Intra Uterine Device by Intrauterine route. 09/19/2024 active ondansetron (ZOFRAN-ODT) 4 MG disintegrating tablet Take 1 tablet (4 mg total) by mouth 3 times daily (every 8 hours) as needed for nausea or vomiting. Place tablet on tongue to dissolve. 08/14/2024 active acetaminophen (TYLENOL) 325 MG tablet Take 2 tablets (650 mg total) by mouth 4 times daily (every 6 hours) as needed for mild pain. 04/16/2023 04/27/20 23 active Spironolactone 50 MG Oral Tablet Spironolactone 50 MG Oral Tablet Refills: 0 WHIPPER Start : [id number] 11/08/2022 completed spironolactone (ALDACTONE) 50 MG tablet spironolactone 50 mg tablet TAKE 1 TAB EACH MORNING FOR 2 WEEKS, THEN 2 TABLETS DAILY IN THE MORNING 10/20/2022 active clindamycin phos-benzoyl peroxide (DUAC) 1.2-5 % external gel clindamycin 1.2 % (1 % base)-benzoyl peroxide 5 % topical gel APPLY SMALL AMOUNT TO ACNE DAILY IN THE EVENING. 05/24/2022 active Kyleena 17.5 mcg/24 hr (up to 5 years) 19.5 mg intrauterine device Take 1 device by intrauterine route. 11/19/2019 12/02/19 22 completed Lotrisone 1 %-0.05 % topical cream APPLY TO THE AFFECTED AND SURROUNDING AREAS OF SKIN BY TOPICAL ROUTE 2 TIMES PER DAY IN THE MORNING AND EVENING PRN 02/25/2019 11/14/19 20 completed Lotrisone 1 %-0.05 % topical cream APPLY TO THE AFFECTED AND SURROUNDING AREAS OF SKIN BY TOPICAL ROUTE 2 TIMES PER DAY IN THE MORNING AND EVENING PRN 02/25/2019 11/14/19 20 completed nitrofurantoin monohydrate/macrocry stals 100 mg capsule TAKE 1 CAPSULE BY MOUTH TWICE A DAY WITH MEALS 09/19/20 24 completed propranolol 10 mg tablet TAKE 1 TABLET BY MOUTH EVERY MORNING AND TAKE 1 TABLET BY MOUTH EVERY EVENING 09/19/20 24 completed Caplyta 10.5 mg capsule 09/06/20 23 completed phenazopyridine 200 mg tablet TAKE 1 TABLET BY MOUTH THREE TIMES A DAY FOR 2 DAYS 09/06/20 23 completed metronidazole 0.75 % (37.5 mg/5 gram) vaginal gel INSERT 1 APPLICATORFUL VAGINALLY EVERY DAY AT BEDTIME FOR 5 DAYS 08/08/20 23 completed Ciprodex 0.3 %-0.1 % ear drops,suspension USE 3 DROPS IN LEFT EAR THREE TIMES A DAY 07/26/20 22 completed lithium carbonate ER 300 mg tablet,extended release TAKE 1 TABLET BY MOUTH TWICE A DAY 07/26/20 22 completed Vyvanse 30 mg capsule TAKE 1 CAPSULE BY ORAL ROUTE EVERY DAY IN THE MORNING 07/26/20 22 completed estradiol 0.1 mg/24 hr weekly transdermal patch APPLY 1 PATCH EVERY WEEK BY TRANSDERMAL ROUTE FOR 2 WEEKS DIRECTED 11/01/20 21 completed Vyvanse 20 mg capsule TAKE 1 CAPSULE BY ORAL ROUTE EVERY DAY IN THE MORNING FOR F90.2 11/01/20 21 completed quetiapine 50 mg tablet TAKE 1 TABLET BY MOUTH EVERYDAY AT BEDTIME 05/23/20 21 completed quetiapine ER 50 mg tablet,extended release 24 hr TAKE 1 TABLET BY MOUTH EVERY DAY 05/23/20 21 completed lamotrigine ER 200 mg tablet,extended release 24 hr TAKE 1 TABLET BY ORAL ROUTE EVERY DAY SWALLOWING WHOLE. DO NOT CRUSH, CHEW AND/OR DIVIDE. 05/19/20 21 completed desvenlafaxine succinate ER 50 mg tablet,extended release 24 hr 12/01/19 21 completed fluoxetine 40 mg capsule TAKE 1 CAPSULE BY MOUTH EVERY DAY IN THE MORNING 12/01/19 21 completed lamotrigine 25 mg tablet TAKE 1 TABLET BY MOUTH EVERY DAY 12/01/19 21 completed Latuda 40 mg tablet TAKE 1 TABLET BY ORAL ROUTE EVERY DAY WITH FOOD (AT LEAST 350 CALORIES) 12/01/19 21 completed sertraline 25 mg tablet TAKE 3 TABS BY MOUTH FOR ONE WEEK, THEN 2 TABS FOR ONE WEEK THEN 1 TAB FOR ONE WEEK. 12/01/19 21 completed Mirena 21 mcg/24 hr (up to 8 years) 52 mg intrauterine device active None recorded. (No additional sig information) completed Ciprodex 0.3 %-0.1 % ear drops,suspension USE 3 DROPS IN LEFT EAR THREE TIMES A DAY USE 3 DROPS IN LEFT EAR THREE TIMES A DAY completed hydroxyzine pamoate 25 mg capsule hydroxyzine pamoate 25 mg capsule completed 11/24 (28) 1 mg-20 mcg (21)/75 mg (7) tablet Take 1 tablet every day by oral route. Take 1 tablet every day by oral route. completed Kyleena 17.5 mcg/24 hrs (5yrs) 19.5mg intrauterine device Take 1 device by intrauterine route. Take 1 device by intrauterine route. complete d lamotrigine 100 mg tablet 1 TAB TWICE DAILY FOR 4 DAYS,1/2 TAB IN AM AND 1 TAB IN PM FOR 4 DAYS, 1/2 TWICE A DAY FOR 4 DAYS 1 TAB TWICE DAILY FOR 4 DAYS,1/2 TAB IN AM AND 1 TAB IN PM FOR 4 DAYS, 1/2 TWICE A DAY FOR 4 DAYS completed levonorgestrel (Mirena, 52 MG,) 20 mcg/24hr IUD Mirena 21 mcg/24 hours (8 yrs) 52 mg intrauterine device Insert one device into the uterine cavity active lithium carbonate 300 MG IR capsule Take 1 capsule (300 mg total) by mouth. active Medication Administration not documented Medication Administration not documented completed norethindrone-ethiny l estradiol (11/24) 1-20 MG-MCG per tablet every 24 hours. active propranolol 20 mg tablet TAKE 1 TABLET BY MOUTH UP TO TWICE A DAY NEEDED FOR ANXIETY TAKE 1 TABLET BY MOUTH UP TO TWICE A DAY NEEDED FOR ANXIETY completed tretinoin 0.025 % topical cream APPLY EVERY OTHER NIGHT X 2-3 WEEKS, THEN NIGHTLY IF TOLERATED APPLY EVERY OTHER NIGHT X 2-3 WEEKS, THEN NIGHTLY IF TOLERATED completed Problems Problem Status Onset Date Problem Type Date of Resoluti on Source Mass of upper outer quadrant of left breast active EncounterDiagnosisAct [facility] Abnormal finding on breast imaging active EncounterDiagnosisAct [facility] T Anxiety active EncounterDiagnosisAct [facility] Chest discomfort active EncounterDiagnosisAct [facility] Simple ovarian cyst active 2016-11-01 ProblemAct [facility] Immunizations Vaccine Date Source Lot Number Status Hep A, adult 03/13/2022 [facility] [id number] completed Tdap 03/13/2022 [facility] [id number] completed COVID-19, mRNA, LNP-S, PF, 3 0 mcg/0.3 mL dose 11/03/2021 [facility] [id number] completed Influenza, MDCK, quadrivalent, PF 11/03/2021 [facility] 30 [id number] completed COVID-19, mRNA, LNP-S, PF, 1 00 mcg/0.5mL dose or 50 mcg/0.25mL dose 03/16/2021 [facility] compl eted COVID-19, mRNA, LNP-S, PF, 3 0 mcg/0.3 mL dose 03/12/2021 [facility] [id number] completed [employer] COVID-19 Vac-Tr iS 30 MCG/0.3ML Intramuscular Suspension 03/12/2021 [facility] ed COVID-19, mRNA, LNP-S, PF, 3 0 mcg/0.3 mL dose 02/18/2021 [facility] [id number] completed [employer] COVID-19 Vac-Tr iS 30 MCG/0.3ML Intramuscular Suspension 02/18/2021 [facility] ed COVID-19, mRNA, LNP-S, PF, 1 00 mcg/0.5mL dose or 50 mcg/0.25mL dose 02/14/2021 [facility] compl eted Hep A, adult 11/19/2020 [facility] [id number] completed Influenza, split virus, quadrivalent, PF 11/19/2020 [facility] [id number] completed Influenza, split virus, quadrivalent, PF 10/16/2018 [facility] H [id number] completed meningococcal MCV4P 10/16/2018 [facility] [id number] compl eted HPV, quadrivalent 08/28/[facility] [id number] complet ed influenza, unspecified formulation 08/28/2016 [facility] U [id number] completed HPV, quadrivalent 09/13/2015 [facility] [id number] complet ed influenza, unspecified formulation 09/13/2015 [facility] [id number] completed HPV, quadrivalent 09/01/2014 [facility] [id number] complet ed influenza, unspecified formulation 09/01/2014 [facility] U [id number] completed Meningo (Menactra) 03/07/2013 [facility] [id number] comple jessy Tdap (Boostrix) 03/07/2013 [facility] [id number] completed Influenza (Split) 01/06/2009 [facility] complet ed Varicella 11/26/2007 [facility] completed DTaP 10/20/2005 [facility] completed Influenza (Split) 10/20/2005 [facility] complet ed IPV 10/20/2005 [facility] completed Influenza (Split) 09/20/2004 [facility] complet ed Influenza (Split) 08/11/2004 [facility] complet ed MMR 08/11/2003 [facility] completed varicella 11/21/2002 [facility] completed DTaP, unspecified formulation 08/06/2002 [facility] completed Hib, unspecified formulation 08/06/2002 [facility] completed DTaP 08/06/2002 [facility] completed HIB (HibTITER) 08/06/2002 [facility] completed MMR 05/30/2002 [facility] completed pneumococcal conjugate PCV 7 05/30/2002 [facility] completed Pneumo 05/30/2002 [facility] completed Hep B, unspecified formulation 02/12/2002 [facility] completed Hepatitis B 02/12/2002 [facility] completed DTaP, unspecified formulation 2001 [facility] completed Hib, unspecified formulation 2001 [facility] completed IPV 2001 [facility] completed pneumococcal conjugate PCV 7 2001 [facility] completed DTaP 2001 [facility] completed HIB (HibTITER) 2001 [facility] completed Pneumo 2001 [facility] completed DTaP, unspecified formulation 2001 [facility] completed Hib, unspecified formulation 2001 [facility] completed IPV 2001 [facility] completed pneumococcal conjugate PCV 7 2001 [facility] completed DTaP 2001 [facility] completed HIB (HibTITER) 2001 [facility] completed Pneumo 2001 [facility] completed DTaP, unspecified formulation 2001 [facility] completed Hep B, unspecified formulation 2001 [facility] completed Hib, unspecified formulation 2001 [facility] completed IPV 2001 [facility] completed pneumococcal conjugate PCV 7 2001 [facility] completed DTaP 2001 [facility] completed Hepatitis B 2001 [facility] completed HIB (HibTITER) 2001 [facility] completed Pneumo 2001 [facility] completed Hep B, unspecified formulation 2001 [facility] completed Hepatitis B 2001 [facility] completed Encounters Encounter Type Encounter Reason Primary Diagnosis Location Date Ambulatory Persons encountering health services in oth circumstances Persons encountering health services in oth circumstances [facility] 01/02/2025 Ambulatory Persons encountering health services in oth circumstances Persons encountering health services in oth circumstances [facility] 01/02/2025 Ambulatory Unspecified lump in the left breast, upper outer quadrant Unspecified lump in the left breast, upper outer quadrant [facility] 10/14/2024 Ambulatory Unspecified lump in unspecified breast Unspecified lump in unspecified breast [facility] 10/06/2024 Ambulatory Unspecified lump in the left breast, unspecified quadrant Unspecified lump in the left breast, unspecified quadrant [facility] 09/19/2024 Ambulatory Unspecified lump in the left breast, unspecified quadrant Unspecified lump in the left breast, unspecified quadrant [facility] 09/19/2024 Ambulatory Dysuria Dysuria [facility] 08/14/2024 Ambulatory [facility] for obstetrics/gynecology nurse exam (general) (routine) w abnormal findings [facility] for obstetrics/gynecology nurse exam (general) (routine) w abnormal findings [facility] 05/02/2024 Emergency Other chest pain Other chest pain [facility] ([facility] 11/28/2023 [facility] 09/25[facility]2023 [facility] 09/14/2023 [facility] 09/10/2023 Ambulatory Persons encountering health services in oth circumstances [facility] 09/06/2023 Ambulatory Encounter for contraceptive management, unspecified [facility] 08/08/2023 Ambulatory [facility] 06/07/2023 Ambulatory [facility] 05/03/2023 Ambulatory Unspecified lump in the left breast, upper outer quadrant [facility] 05/02/2023 Ambulatory Unspecified lump in the left breast, upper outer quadrant [facility] 04/16/2023 Ambulatory Abnormal weight loss [facility] 04/09/2023 Ambulatory Other abnormal a nd inconclusive findings on diagnostic imaging of breast [facility] 03/21/2023 Ambulatory [facility] 03/14/2023 Ambulatory [facility] 03/14/2023 Ambulatory Unspecified lump in the left breast, unspecified quadrant [place] [facility] 12/29/2022 Ambulatory [facility] 12/22/2022 Ambulatory [facility] 08/24/2022 Ambulatory [facility] 07/28/2022 Ambulatory [facility] 06/06/2022 Ambulatory [facility] 11/01/2021 Care Team Organization Name Specialty Phone Email Start Date End Da te [facility] ([facility]) 11/28/2023 [facility] ([facility]) [facility] 09/10/2023 [facility] 07/27/2023 024 [facility] Rashard Dixon [facility] 07/10/2024 [facility] KEVIN GOMEZ Primary Care 12/29/2022 01/21/[address] [facility] 09/21/2022 06/23/2024 [facility] 08/29/2022 [facility] KEVIN GOMEZ MD Primary Care 07/21/2022 022 [facility] 03/17/2022 11/08/2022 [facility] 06/08/2021 08/24/2022
--- OUTSIDE RECORDS SUMMARY | 2025-03-12 08:18 | XMS_ITS ---
Author Organization [facility] Address [address] [place] [id number] Care Team Providers Care Consumer Loan Officer Name Role Phone AYAN DAMON Primary Care Provider [phone] REASON FOR VISIT Update [facility] [employer] Encounters Encounter Location Date Provider Diagnosis [facility] [address] [place] [phone] 01/29/2024 AYAN DAMON Plan Of Treatment No Information Progress Notes * Jo GRIERDOB: 1 (23 yo F)Acc No.[id number]:01/29/2024 Patient:?Jo GRIER :2000???Age:23 Y???Sex:Female Address:[address] [place] [address] * true * Date:? Generated for Nelli pearl/Rebecca/eTransmitting on:?03/12/2025 08:17 AM EDT
--- OUTSIDE RECORDS SUMMARY | 2025-03-12 08:18 | XMS_ITS | Encounter Summary ---
Author Organization [facility] Address [address] [place] [address] Care Team Providers Care English Professor Name Role Phone Zack Wetzel MD Primary Care Provider [phone] Encounter Details Date Type Department Care Team (Late st Contact Info) Description 08/14/2024 Scanned Document [address] [place] [phone] Provider, Generic Social History Tobacco Use Types Packs/Day Years [...] Orientation Heterosexual (straight) 01/04 11:19 AM EST documented as of this encounter Plan of Treatment Upcoming Encounters Date Type Department Care Team (Late st Contact Info) Description 04/06/2025 10:30 AM EDT Appointment [facility] [address] [place] [address] 04/14/2025 10:30 AM EDT Office Visit [facility] [address] [place] [phone] Mady Anand MD [address] [facility] [address] [place] [address] documented as of this encounter Visit Diagnoses Not on filedocumented in this encounter Care Teams English Professor Relationship Specialty Start Date End Date Zack Wetzel MD PCP - General Pediatric, General 12/09/20 documented as of this encounter
--- OUTSIDE RECORDS SUMMARY | 2025-03-12 08:18 | XMS_ITS | Encounter Summary ---
Author Organization [facility] Address [address] [place] [address] Care Team Providers Care Identification Officer Name Role Phone Zack Wetzel MD Primary Care Provider [phone] Encounter Details Date Type Department Care Team (Late st Contact Info) Description 08/14/2024 Scanned Document [address] [place] [phone] Provider, Generic Social History Tobacco Use [...] Info) Description 04/06/2025 10:30 AM EDT Appointment [facility] [address] [place] [address] 04/14/2025 10:30 AM EDT Office Visit [facility] [address] [place] [phone] Mady Anand MD [address] [facility] [address] [place] [address] documented as of this encounter Visit Diagnoses Not on filedocumented in this encounter Care Teams Identification Officer Relationship Specialty Start Date End Date Zack Wetzel MD PCP - General Pediatric, General 12/09/20 documented as of this encounter
--- OUTSIDE RECORDS SUMMARY | 2025-03-12 08:19 | XMS_ITS | Patient Health Record ---
Author Organization [facility] Address [address] [place], [place] [id number] Care Team Providers Care Office Support Associate Name Role Phone AYAN DAMON Primary Care Provider [phone] Allergies Allergen (clinical drug ingredient) Drug/Non Drug Allergy documented on EMR Reaction Allergy Type Onset Date Status Adhesive Unknown Allergy Active Reason For Referral No Information Medications Medication SIG (Take, Route, Fr equency, [...] tobacco user? Yes Section Notes: Pt vapes Pt vapes Plan Of Treatment No Information Insurance Providers Payer Name Payer Address Payer Phone Subscriber Number Group Number Insured Name Patient Relationship to Insured Coverage Start Date Coverage End Date [facility] [address] [place], [place] [phone] [id number] Jo Lara Self - patient is the insured Medical (General) History Medical History History ICD Code fibroadenoma breast Surgical History Surgery Date(Month/Year) mass removed from left breast 2022
--- OUTSIDE RECORDS SUMMARY | 2025-03-12 08:19 | XMS_ITS | Clinical Summary ---
Author Organization [facility] Address [address] [place] [address] Care Team Providers Care Caster [employer] Name Role Phone Unknown Pcp, Non Php Primary Care Provider Unava ilable Medications Clindamycin-Pablo oyl Per, Refr, (BENZACLIN) gel Apply small amount to acne daily in the evening. 1 6 05/24/2022 Active Tretinoin (RETIN-A) 0.025 % cream 45 0 10/20/2022 Active Spironolactone (ALDACTONE) 50 MG tablet 0 11/08/2022 Active Norethin Juve-Eth Estrad-FE (11/24) 1-20 MG-MCG per tablet TAKE 1 TABLET BY MOUTH EVERY DAY 84 0 03/14/2023 Active Active Problems Problem Noted Date Diagnosed Date Preoperative examination 04/10/2023 Left breast mass 04/10/2023 Adult celiac disease 04/03/2023 Current every day vaping 03/27/2023 Acne 05/20/2022 Weight loss 05/20/2022 Encounter for immunization 03/13/2022 Bipolar disorder, mixed 11/19/2020 Normal eye exam 09/13/2015 Routine child health maintenance 09/13/2015 Resolved Problems Problem Noted Date Diagnosed Date Resolved Date Headache 11/08/2022 12/08/2022 Immunizations Name Administration Dates Next Due Covid-19, mRNA (Pfizer Pre F all 2022) Monovalent, 30 mcg/0.3 ml mehnaz-sucrose (12+) 03/12/2021,02/18/2021 DTaP 10/20/2005, 2,2001,09/02,2001 HPV4 (Gardasil 4) 08/28/2016,09/13/2015,09/01/20 14 Hep A (adult) 03/13/2022,11/19/2020 Hep B (adult) 02/12/2002,2001,2001 Hib (HbOC) 08/06/2002, 2,2001,07/15 IPV 10/20/2005, 2,2001,07/15 Influenza (SEASONAL) - 08/28/2016,09/13/2015, Influenza,injectable,MDCK, P rsrv Fr,Quad 11/03/2021 Influenza,injectable,quad,Prsrv Fr 11/19/2020, Influenza,split(incl.purifie d surface antigen) 01/06/2009,10/20/2005,09/20/2004,08/11 MMR 08/11/2003,05/30/2002 Meningococcal ACWY (Menactra) 10/16/2018, 013 PPV23 (Pneumovax) 05/30/2002, 2,2001,07/15 Tdap 03/13/2022,03/07/2013 Varicella 11/26/2007,11/21/2002 Family History Medical History Relation Name Comments Diabetes Maternal grandfather type 1 diabetes mellitus : Maternal Grandfather, Maternal Uncle, Cousin Diabetes Maternal uncle type 1 diabet es mellitus : Maternal Grandfather, Maternal Uncle, Cousin Diabetes Other type 1 diabetes mellitus : Maternal Grandfather, Maternal Uncle, Cousin Relation Name Status Comments Maternal grandfather Maternal uncle Other Social History Tobacco Use Types Packs/Day Years Used Date Smoking Tobacco: Never Assessed Comments:Smoking Status:Curr ently using tobacco Comments Unknown Sex and Gender Information Value Date Recorded Sex Assigned at Not on file Legal Sex Female 11:22 PM EDT Gender Identity Not on file Sexual Orientation Not on file Last Filed Vital Signs Vital Sign Reading Time Taken Comments Blood Pressure 108/64 04/10/2023 9:44 AM EDT Pulse 80 04/10/2023 9:44 AM EDT Temperature 36.6 ??C (97.9 ??F) 04/10/2023 9:44 AM ED T Respiratory Rate 18 04/10/2023 9:44 AM EDT Oxygen Saturation 97% 11/08/2022 9:33 AM EST RA Inhaled Oxygen Concentration - - Weight 54.3 kg (119 lb 12.8 oz) 04/10/2023 9:44 AM EDT Height 170.2 cm (5' 7 ) 04/10/2023 9:44 AM EDT Body Mass Index 18.76 04/10/2023 9:44 AM EDT Plan of Treatment Health Maintenance Due Date Last Done Comments Pap Smear 2017 Chlamydia 03/27/2024 03/27/2023, 11/05, 10/21/2019 COVID-19 Vaccine ( season) 2024 03/12/2021, 02/18/2021 Influenza (Season Ended) 2025 021, 11/19/2020, 10/16/2018, Additional history exists DTaP/Tdap/Td (8 - Td or Tdap) 03/13/2032 03/13/2022, 03/07/2013, 10/20/2005, Additional history exists Zoster (Shingrix) (1 of 2) 2051 11/26/2007, Hep B Completed 02/12/2002, 07/06, 2001 Pneumococcal Aged Out 05/30/2002, 06/2002, 2001, Additional history exists No longer eligible based on patient's age to complete this topic Hib Completed 08/06/2002, 06/2002, 2001, Additional history exists HPV Vaccine Completed 08/28/2016, 0 07/2015, 09/01/2014 Meningococcal ACWY Completed 10/16/2018, 03/07/2013 Hep A Aged Out 03/13/2022, 11/19/2020 No lo nger eligible based on patient's age to complete this topic Physical Discontinued 03/27/2023, 07/2022, 11/19/2020, Additional history exists Hepatitis C Screening Completed 03/29/2023 Colonoscopy Discontinued 07/23/2023 Procedures Procedure Name Priority Date/Time Associated Diagnosis Comments COLONOSCOPY 07/23/2023 11:12 AM EDT HEPATITIS C ANTIBODY W/ REFLEX TO RNA, QN, RT PCR Routine 03/29/2023 2:28 PM EDT CHLAMYDIA TRACHOMATIS/N. GONORRHOEAE (GC) RNA, TMA (URINE) Routine 03/27/2023 2:30 PM EDT from Last 3 Months or Most Recently Relevant to Health Maintenance Results * COLONOSCOPY (07/23/2023 11:12 AM EDT) Narrative 07/23/2023 11:12 AM EDT Ordered by an unspecified provider. us Unknown Provider PROCEDURES Final Result * HEPATITIS C ANTIBODY W/ REFLEX TO RNA, QN, RT PCR (03/29/2023 2:28 PM EDT) Hepatitis C virus Ab NON-REACT CASSIDY NON-REACT CASSIDY PHCT CONVERSIONS Comment:Antibodies to HCV we re not detected. NOTE: This does not entirely exclude the possibility of exposure to HCV since antibody production may lag infection. If there is a high suspicion of HCV infection HCV RNA testing may be of diagnostic value. 03/29/2023 2:28 PM EDT Narrative PHCT CONVERSIONS - 03/29/2023 11:18 PM EDT [facility] received extra specimens:.br1 APTIMA URINE..brPlease contact the laboratory immediately, if additional testing is needed..brPhone: .brThank you Testing Performed at: [facility], [address], [place] [address], , Ethnographic Materials Conservator: Jahaira Cruz MD CL#[id number] us Zack Wetzel MD LABORATORY Final Result PHCT CONVERSIONS * CHLAMYDIA TRACHOMATIS/N. GONORRHOEAE (GC) RNA, TMA (URINE) (03/27/2023 2:30 PM EDT) CHLAMYDIA TRACHOMATIS RNA, TMA NOT DETECTED NOT DETECTED PHCT CONVERSIONS NEISSERIA GONORRHOEAE RNA, TMA NOT DETECTED NOT DETECTED PHCT CONVERSIONS 03/27/2023 2:30 PM EDT Narrative PHCT CONVERSIONS - 03/28/2023 8:10 AM EDT No Collection Date or Time Noted on requisition, Received Date and Time utilized. Testing Performed at: [facility], [address] [place], [place] [id number], , Ethnographic Materials Conservator: Jahaira Cruz MD CL#[id number] Zack Wetzel MD LABORATORY Final Result PHCT CONVERSIONS from Last 3 Months or Most Recently Relevant to Health Maintenance Insurance PPO Care Teams Caster [employer] Relationship Specialty Start Date End Date Unknown Pcp, Non Php PCP - General 10/15/24
--- OUTSIDE RECORDS SUMMARY | 2025-03-12 08:20 | XMS_ITS | Encounter Summary ---
Author Organization [facility] Address [address] [place] [address] Care Team Providers Care Relief Man Name Role Phone Zack Wetzel MD Primary Care Provider [phone] Charla Birmingham MD Unavailable [phone] Encounter Details Date Type Department Care Team (Late st Contact Info) Description 01/07/2021 Scanned Document [facility] [address] [phone] Provider, External, [address] [place] [address] Social History Tobacco Use Types Packs/Day Years Used Date Smoking Tobacco: Never Assessed Comments Unknown Sex and Gender Information Value Date Recorded Sex Assigned at Female 04/06/2023 3:37 PM EDT Legal Sex Female 4:01 PM EDT Gender Identity Female 01/04/2021 11:19 AM EST Sexual Orientation Heterosexual (straight) 01/04 11:19 AM EST documented as of this encounter Plan of Treatment Upcoming Encounters Date Type Department Care Team (Late st Contact Info) Description 04/06/2025 10:30 AM EDT Appointment [facility] [address] [place] [address] [address] [place] [address] 04/14/2025 10:30 AM EDT Office Visit [facility] [address] [place] [address] Mady Anand MD [address] [facility] [address] [place] [address] documented as of this encounter Visit Diagnoses Not on filedocumented in this encounter Care Teams Relief Man Relationship Specialty Start Date End Date Zack Wetzel MD PCP - General Pediatric, General 12/09/20 Charla Birmingham MD [address] [place] [address] PCP - [employer] Attributed 12/06/22 01/02/23 documented as of this encounter
[2025-03-12 08:27] LABS: MANUAL DIFF FLAG NO
[2025-03-12 08:32] LABS: Basophils Absolute Auto 0.1 X10*3/uL (0.0-0.2); Basophils Percent Auto 1.6 % (0-2); Eosinophils Absolute Auto 0.1 X10*3/uL (0.0-0.4); Eosinophils Percent Auto 1.8 % (0-4); Hematocrit 40.7 % (37.0-47.0); Hemoglobin 13.4 g/dl (12.0-16.0); Imm Gran Abs Auto 0.01 X10*3/uL (0.00-0.03); Imm Gran Pct Auto 0.2 % (0.0-0.4); Lymphocytes Percent Auto 21.8 % (20-40); Mean Corpuscular HGB Conc 32.9 g/dl (31.0-35.0); Mean Corpuscular Hemoglobin 29.4 pg (27.0-33.0); Mean Corpuscular Volume 89.3 fL (80.0-98.0); Mean Platelet Volume 10.9 fL (9.4-12.3); Monocytes Absolute Auto 0.3 X10*3/uL (0.1-1.2); Monocytes Percent Auto 6.4 % (2-11); Neutrophils Percent Auto 68.2 % (45-73); Platelet Count 226 X10*3/uL (160-400); Red Blood Count 4.56 X10*6/uL (4.20-5.50); Red Cell Distribution Width 13.2 % (11.0-16.0); White Blood Count 4.4 X10*3/uL (4.8-10.8)
[2025-03-12 08:53] LABS: Alanine Aminotransferase 12 U/L (0-31); Albumin Level 4.2 g/dL (3.5-5.0); Alkaline Phosphatase 45 U/L (39-117); Anion Gap 10 (12-20); Aspartate Amino Transferase 20 U/L (5-31); Bilirubin Total 0.4 mg/dL (0.0-1.0); Blood Urea Nitrogen 11 mg/dL (9-16); Calcium 9.1 mg/dL (8.4-10.2); Carbon Dioxide 24 mmol/L (22-29); Chloride 109 mmol/L (96-108); Cholesterol 124 mg/dL (<200); Estimated Glomerular Filt Rate > 60; Glucose Fasting 84 mg/dL (60-99); HDL Cholesterol 53 mg/dL (>40); Iron 97 mcg/dL (30-160); LDL Cholesterol Calculated 62 mg/dL (<100); Percent Iron Saturation 39 % (15-50); Sodium 139 mmol/L (135-145); Total Iron Binding Capacity 246 mcg/dL (228-428); Total Protein 6.7 g/dL (6.5-8.0); Triglycerides 45 mg/dL (<150); Unsaturated Iron Binding 149 ug/dL
[2025-03-12 09:01] LABS: Urine Pregnancy NEGATIVE (NEGATIVE)
[2025-03-12 09:02] LABS: UPreg QC Valid YES
[2025-03-12 09:08] LABS: Free T4 (Free Thyroxine) 0.97 ng/dL (0.71-1.85); Thyroid Stimulating Hormone 0.52 uIU/mL (0.32-4.0)
[2025-03-12 09:12] LABS: Erythrocyte Sedimentation Rate 2 MM/HR (0-20)
[2025-03-12 09:21] LABS: Folate 5.7 ng/mL (> or = 4.0); Vitamin B12 422 pg/mL (200-900)
[2025-03-12 09:24] LABS: Estimated Average Glucose 85 mg/dL; Hemoglobin A1C 95.3202 umol/L; Hemoglobin A1c % 4.6 % (<6.0); Total Hemoglobin (HGBA1C) 3556.4161 umol/L
[2025-03-13 16:04] LABS: Homocysteine 8.1 umol/L (<10.4)
[2025-03-17 07:19] LABS: Methylmalonic Acid 86 nmol/L (55-335)
[2025-03-19 06:28] LABS: Vitamin B1 10 nmol/L (8-30)
== END 2025-03-12 08:05 | disposition home or self-care (01) ==
LOC: HO.LAB 08:04
PROVIDERS: PCP Family Medicine; Visit Provider Psychiatry & Neurology Psychiatry
DX: F39 Unspecified mood [affective] disorder (principal); F41.1 Generalized anxiety disorder; Z13.6 Encounter for screening for cardiovascular disorders; Z13.1 Encounter for screening for diabetes mellitus
CPT/HCPCS: 36415; 80053; 80061; 81025; 82306; 82607; 82746; 83036; 83090; 83540; 83735; 83921; 84425; 84439; 84443; 85025; 85652; 93005

== ENCOUNTER → 2025-03-12 08:11 | Outpatient (BNV) | payer OTHER, SELFPAY | PROVIDERS: PCP Family Medicine; Visit Provider Internal Medicine | DX: F39 Unspecified mood [affective] disorder (principal); F41.1 Generalized anxiety disorder | CPT/HCPCS: 93010 ==

== ENCOUNTER 2025-03-16 09:00 | Outpatient (RCR) | payer OTHER, SELFPAY ==
[2025-02-27 11:09] VITALS: BMI 18.9
[2025-02-27 11:10] VITALS: BP 92/65; PULSE 59; TEMP 36.7
--- NOTE | 2025-02-27 12:10 | P.HPPSP_ITS ---
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 As much as it was not a healthy relationship she says she now is also dealing with feeling rejected, which feeds thoughts of worthlessness. ?He was stringing me along . She also reports recently dating another kassi who needed space which further plate into recurrent themes of neglect. ?I do not want to I just want all these problems to go) she reports feeling depressed, numb, empty, worthless sometimes admits she ?does not see the point?. Denies any suicidal intention urge or plan to harm self. She reports carrying previous diagnoses including MDD, cannabis use disorder, ADHD by her provider who has a reported tendency to change her meds frequently which she does find frustrating as she is not sure she is spending enough time on them. She also reports experiencing bouts of anxiety. 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 Has been in outpatient treatment for all the past year at [facility], where she has a therapist for over the past year and only recently was restarted on medication 3 weeks ago. She reports last being treated back in 2022 by this same provider when she had stopped taking medication shortly after graduating from college. I have been on some SSRIs, based on my tolerance they thought I had bipolar 2.? Currently denies any symptoms of hypomania, david or psychosis. Past Psychiatric History: IPLOC: PHP: Denies Therapist: Melissa Foy (at [facility]) Psych provider: Lianna (at [facility]), just recently r estarted medications after a few years of being off PCP: Estrella Lin Previous medication trials: BuSpar, duloxetine, Zoloft, Prozac, possibly Celexa, lamotrigine (rash), possibly Abilify, lithium, Seroquel (self-harming behaviors) Latuda was prescribed but not started due to cost. Peer was also on Caplyta up to 10.5 mg in 2022. Vistaril, Ativan, possibly some stimulant trials, (Vyvanse, possibly Concerta) Current medications: Clonazepam 0.5 t.i.d. (split 0.5/0.25/0.25/0.5) - this was started February 11 Propranolol 10 mg b.i.d. - started February 17 [facility] Medical History (Updated 03/02/25 @ 03:17 by Taty Dove MD) History of concussion Narrative: History of recurrent cysts on ovaries and breast (some as large as 6 cm), denies known history of PCOS is not sure if she has been worked up Status post ovarian cystectomy x1 (L) Status post breast cystectomy x1 (L) Previous colonoscopy to rule out celiac in 2022 Denies seizures Concussion x1 age 18 (sports related) Nulligravid G0 LMP: On IUD does not recall last menses Height: 5 ft 6 in Weight: 117 lb Allergies: Lamictal, adhesive Surgical History (Updated 02/27/25 @ 11:07 by Isabell Casanova RN) History of removal of cyst Social History: Lives with mother, sister, stepdad Undergraduate graduated 2022 Substance History: Alcohol use - social use, able to function, in moderation, seldom to occasional Denies nicotine or marijuana use or any other substance use Diagnostics Vital Signs (24Hr): BMI result Body Mass Index 18.9 Meds/Allergies Meds Home Medications ?Medication ?Instructions ?Recorded ?Confirmed ?Type clonazepam 0.5 mg tablet 0.5 mg PO BID 02/27/25 02/27/25 History propranolol 10 mg tablet 10 mg PO BID 02/27/25 02/27/25 History Allergies Allergies Allergy/AdvReac Type Severity Reaction Status Date / Time adhesive tape Allergy Rash Verified 02/27/25 11:08 Mental Status Exam Mental Status Exam Narrative: Alert, oriented, in no acute distress. Calm, cooperative, engaged. No psychomotor agitation or neurovegetative retardation. Eye contact maintained. Mood depressed, affect variable and brighter than expected. Speech normal. Thought process linear, coherent. Thought content related to stressors, transient passive SI without plan, urge or intention. Denies AI or HI. No paranoia or delusional content elicited. No evidence of psychosis. Insight and judgment - fair but adequate. Assessment & Plan Assessment & Plan (1) MDD (major depressive disorder), recurrent episode, moderate: Status: Acute Code(s): F33.1 - Major depressive disorder, recurrent, moderate (2) RACIEL (generalized anxiety disorder): Status: Acute Code(s): F41.1 - Generalized anxiety disorder Plan Admit to [facility] VS reviewed: afebrile, BP 92/65;?59 bpm start Wellbutrin SR 50-100 mg qam start Abilify 1-2 mg qhs continue other regular medications for now: propranolol 10 mg BID (will consider switching to guanfacine ER) clonazepam 0.5 mg TID (split 0.5/0/0.25/0.25/0.5) Routine lab work ordered as indicated EKG, routine for baseline QTc for medication considerations as indicated UDS as indicated MassPat reviewed Continue to monitor as per protocol Patient educated on: diagnosis and medication risk/benefits Informed Consent: understands Reason for continued partial hosp. stay Substantial Risk for: inability to function, rapid decompensation and med/psych decompensation Certification I certify that partial hospital treatment is medically necessary due to the symptoms and problems resulting from the patient's mental illness and the failure to treat the patient at the partial hospital level of care would likely result in the patient requiring inpatient psychiatric care which could not be prevented at a less intensive level of care. Time Spent With Patient Time: Total time managing care of this patient today __90__ minutes.
--- NOTE | 2025-02-27 12:46 | PC.ADMIT ---
Patient is a 24 year old single female who was reportedly seen by [facility] secondary to increased depression with passive SI and increased anxiety. Stresses include patient recently broke up with her boyfriend and she is currently attending [employer] and is graduating this March 2025. Patient lives with mom and step dad Alberto and younger sister. Patient stated, They are supportive this time around they are being super encouraging and really nice to see . Patient is alert and oriented x4. She is calm and cooperative. She presented with depressed and anxious mood and affect. Regarding SI patient stated, The thoughts of suicide is there but there is not intent or plan. Patient given a copy of her safety plan if needed. Medications verified with patient and patient's pharmacy. She reports taking medications as prescribed. Patient reports she smokes marijuana daily. She was given education about MUD along with possible short and fdc effects of use.
--- NOTE | 2025-03-03 12:08 | HO.PHPPROGNO ---
Subjective Subjective Date of Service: 03/03/25 Reason For Visit: depression,anxiety,?bipolar Interim History: Patient seen for follow-up. 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 Conflicts are creating a rift between her mother and sister and feels she ends up getting pulled in. She reports her mood as still very low, ?feel like I am forcing myself to have to do things?. She noticed a couple of times were she was in the middle of something and forget what she was doing she was mostly notice this at the gym where she will be working out and will forget 2 seconds later what she was planning to do. ?I just feel weird today, just anxious and out of it . She denies feeling weird first thing in the morning but after a few hours she has been noticing some anxiety that arises before lunch and persist into the afternoon. This may be related to the Wellbutrin she is noted to not be taking her propranolol she says she was not clear whether she needed to. I suggest she should start back on it and if does not adequately control her anxiety we can could consider switching over to guanfacine which is long-acting. Medication Compliance: Yes Side effects from medications: No Attending Groups: Yes Review of Systems Acute medical concerns: No Mental Status Exam Mental Status Exam Narrative: Alert, oriented, in no acute distress. Calm, cooperative, engaged. No psychomotor agitation or neurovegetative retardation. Eye contact maintained. Mood depressed, affect variable and brighter than expected. Speech normal. Thought process linear, coherent. Thought content related to stressors, transient passive SI without plan, urge or intention. Denies AI or HI. No paranoia or delusional content elicited. No evidence of psychosis. Insight and judgment - fair but adequate. Diagnostics Vital Signs (24Hr): BMI result Body Mass Index 18.9 Assessment & Plan Assessment & Plan (1) MDD (major depressive disorder), recurrent episode, moderate: Status: Acute Code(s): F33.1 - Major depressive disorder, recurrent, moderate (2) RACIEL (generalized anxiety disorder): Status: Acute Code(s): F41.1 - Generalized anxiety disorder Plan continue PHP continue Wellbutrin SR 50 mg qam continue Abilify at 2 mg qhs (for now) continue other regular medications for now: restart propranolol 10 mg BID (will consider switching to guanfacine ER) continue clonazepam 0.5 mg TID (split 0.5/0/0.25/0.25/0.5) Routine lab work ordered as indicated EKG, routine for baseline QTc for medication considerations as indicated UDS as indicated VS reviewed: afebrile, BP 92/65;?59 bpm Continue to monitor Patient educated on: diagnosis, medication risk/benefits and substance abuse Informed Consent: understands Reason for contiued partial hosp. stay Substantial Risk for: harm to self, inability to function, rapid decompensation and med/psych decompensation Certification I certify that partial hospital treatment is medically necessary due to the symptoms and problems resulting from the patient's mental illness and the failure to treat the patient at the partial hospital level of care would likely result in the patient requiring inpatient psychiatric care which could not be prevented at a less intensive level of care. Total time managing care of this patient today _20___ minutes. Discharge Plan Discharge Attending provider: Taty Dove Medications: New aripiprazole 2 mg tablet 2 mg PO BEDTIME Qty: 14 0RF bupropion HCl 100 mg tablet sustained-release 12 hr 100 mg PO QAM Qty: 14 0RF Continued clonazepam 0.5 mg tablet 0.5 mg PO BID Patient Comments: Patient stated she was told to take: One full pill in the am, 1/2 tab at lunch and dinner, and one full pill at night. She showed me a text that her prescriber texted her with those instructions. Rx Instructions: Patient stated she was told by her prescriber to take: One full pill in the am, 1/2 tab at lunch and dinner, and one full pill at night. propranolol 10 mg Tablet 10 mg PO BID Print Language: Kyrgyz
--- NOTE | 2025-03-06 13:04 | HO.PHPPROGNO ---
Subjective Subjective Date of Service: 03/06/25 Reason For Visit: depression,anxiety,?bipolar Interim History: Checking in with patient given staff concerns about safety. Patient reports having passive SI. She denies any suicidal urge intention or plan she denies any urge to hurt herself. Denies SI the. Denies any aggressive thoughts or HI. She admits she has been struggling this week with intrusive thoughts, especially in context of family stressors, feeling sometimes it would be easier to not exist however she states this is not an option and is trying to stay hopeful that things will get better. She feels she has adjusted to her medications she denies feeling strange during the day anymore. Sleep is variable, sometimes fair, sometimes okay. She finds going to the gym very helpful for her mental health. She shares plans this weekend which mostly involve work and family. Medication Compliance: Yes Side effects from medications: No Attending Groups: Yes Review of Systems Acute medical concerns: No Mental Status Exam Mental Status Exam Narrative: Alert, oriented, in no acute distress. Calm, cooperative, engaged. No psychomotor agitation or neurovegetative retardation. Eye contact maintained. Mood depressed, affect variable and brighter than expected. Speech normal. Thought process linear, coherent. Thought content related to stressors, transient passive SI without plan, urge or intention. Denies AI or HI. No paranoia or delusional content elicited. No evidence of psychosis. Insight and judgment - fair but adequate. Diagnostics Vital Signs (24Hr): BMI result Body Mass Index 18.9 Assessment & Plan Assessment & Plan (1) MDD (major depressive disorder), recurrent episode, moderate: Status: Acute Code(s): F33.1 - Major depressive disorder, recurrent, moderate (2) RACIEL (generalized anxiety disorder): Status: Acute Code(s): F41.1 - Generalized anxiety disorder Plan continue PHP continue Wellbutrin SR 50-100 mg qam increase Abilify to 3-5 mg qhs over weekend as directed continue other regular medications for now: propranolol 10 mg BID (will consider switching to guanfacine ER) clonazepam 0.5 mg TID (split 0.5/0/0.25/0.25/0.5) Routine lab work ordered as indicated EKG, routine for baseline QTc for medication considerations as indicated UDS as indicated VS reviewed: afebrile, BP 92/65;?59 bpm Continue to monitor her her Patient educated on: diagnosis, medication risk/benefits and substance abuse Informed Consent: understands Reason for contiued partial hosp. stay Substantial Risk for: harm to self, inability to function, rapid decompensation and med/psych decompensation Certification I certify that partial hospital treatment is medically necessary due to the symptoms and problems resulting from the patient's mental illness and the failure to treat the patient at the partial hospital level of care would likely result in the patient requiring inpatient psychiatric care which could not be prevented at a less intensive level of care. Total time managing care of this patient today __30__ minutes. Discharge Plan Discharge Attending provider: Taty Dove Medications: New aripiprazole 2 mg tablet 2 mg PO BEDTIME Qty: 14 0RF bupropion HCl 100 mg tablet sustained-release 12 hr 100 mg PO QAM Qty: 14 0RF Continued clonazepam 0.5 mg tablet 0.5 mg PO BID Patient Comments: Patient stated she was told to take: One full pill in the am, 1/2 tab at lunch and dinner, and one full pill at night. She showed me a text that her prescriber texted her with those instructions. Rx Instructions: Patient stated she was told by her prescriber to take: One full pill in the am, 1/2 tab at lunch and dinner, and one full pill at night. propranolol 10 mg Tablet 10 mg PO BID Print Language: Pashto
--- NOTE | 2025-03-06 13:34 | HO.PHP ---
PHP staff member met with Jo due to her leaving the third group tearful. PHP staff member explored what was occurring. Jo noted that she is struggling with intense SI thoughts. PHP staff member explored what those thoughts are, in which they were she would be better off not here and she doesn't want to live. PHP staff member explored if Jo has a plan or intent. Jo voiced that she does not have a plan or intent. Jo talked about feeling overwhelmed with life and school work. PHP staff member assessed what stops her from acting on her thoughts. Jo reported that she is scared to do that to herself, she doesn't want to do that to her family, she doesn't want her family finding her like that, she knows how that will negatively impact her family, and she wants to enjoy her life. Jo expressed that she feels she needs more then PHP. PHP staff asked what she meant by that. Jo mentioned that she feels she needs partial and her OP therapist but doesn't think her therapist would see her while in the program. PHP staff member stated that she could ask her therapist because some will still meet with the pts. while they are here. Jo was receptive. PHP staff member voiced that she hears that she feels she needs more than this and asked if she feels she needs inpatient. Jo did not feel that was a level of care she needs at this time. PHP staff member and Jo talked about ways to keep her safe over the weekend. Jo disclosed that today she has work, Sunday she is going to a baby shower with her mother and is then going to go to the gym, and Sunday she has work as well. Jo mentioned she is also going to work on completing her assessments for school. PHP staff member lastly explored if she felt her SI was increasing would she utilize crisis. Jo mentioned she would cause she has in the past and already has there numbers. Jo voiced that overall she feels safe for the weekend and is working on replacing those thoughts with positive thoughts.
--- NOTE | 2025-03-16 12:42 | P.PNPSP_ITS ---
Subjective Subjective Date of Service: 03/16/25 Reason For Visit: depression,anxiety,?bipolar Interim History: Patient seen for follow-up, anticipating discharge at the end of program today.? Reports no acute issues or concerns. Medication compliant, medications well- tolerated. Denies any adverse effects.? Mood is stable.? Denies any hopelessness or SI. Denies thoughts of harming self or others at this time. Denies any aggressive ideation or HI. Denies any paranoia or AH or VH. Sleep, appetite, energy stable. Alert, oriented, in no acute distress. Calm, cooperative. Mood stable, affect appropriate. Speech normal. Thought process linear, coherent, more goal- directed. Thought content related to stressors, future-oriented, denies any helplessness, hopelessness or SI.? No aggressive ideation or HI. No paranoia or delusional content elicited. No evidence of psychosis. Insight and judgment fair-good. [facility]charge from [facility] Continue regular medications Refills sent to pharmacy Will defer further medication management to outpatient provider *Safety plan reviewed *Discharge diagnoses, treatment course, discharge plan have been reviewed with patient (including medication regime, medication management, potential side effects) as well as treatment rationale were also revisited *Discharge paperwork signed and given to patient, copy sent for scanning to chart Diagnostics Vital Signs (24Hr): BMI result Body Mass Index 18.9 Assessment & Plan Certification I certify that partial hospital treatment is medically necessary due to the symptoms and problems resulting from the patient's mental illness and the failure to treat the patient at the partial hospital level of care would likely result in the patient requiring inpatient psychiatric care which could not be prevented at a less intensive level of care. Total time managing care of this patient today ____ minutes. Discharge Plan Discharge Attending provider: Taty Dove Medications: New gabapentin 100 mg capsule 100 - 200 mg PO TID Qty: 30 0RF Continued clonazepam 0.5 mg tablet 0.5 mg PO BID Patient Comments: Patient stated she was told to take: One full pill in the am, 1/2 tab at lunch and dinner, and one full pill at night. She showed me a text that her prescriber texted her with those instructions. Rx Instructions: Patient stated she was told by her prescriber to take: One full pill in the am, 1/2 tab at lunch and dinner, and one full pill at night. propranolol 10 mg Tablet 10 mg PO BID Changed bupropion HCl 100 mg tablet sustained-release 12 hr 100 mg PO BID Qty: 60 0RF Rx Instructions: in AM and lunch aripiprazole 2 mg tablet 4 mg PO BEDTIME Qty: 60 0RF Print Language: Beninese
== END 2025-03-16 23:59 | disposition home or self-care (01) ==
LOC: HO.PHPA 09:00
PROVIDERS: Visit Provider Psychiatry & Neurology Psychiatry
DX: F33.1 Major depressive disorder, recurrent, moderate (principal); F41.1 Generalized anxiety disorder; Z79.899 Other long term (current) drug therapy
CPT/HCPCS: 90791; 90853